=== PATIENT | female | born 1985 | race Caucasian/White ===

== ENCOUNTER 2018-02-19 12:45 | Observation (INO) | payer OTHER | END 2018-02-19 14:41 | disposition home or self-care (01) | LOC: FLD 12:45 | PROVIDERS: ADMIT Obstetrics & Gynecology; ATTEND Obstetrics & Gynecology | DX: Z34.83 Encounter for supervision of other normal pregnancy, third trimester (principal) | CPT/HCPCS: 59025; G0378 ==

== ENCOUNTER 2018-04-07 23:05 | Inpatient (IN) | payer OTHER ==
[2018-04-07] MEDS ORDERED: AMPICILLIN SODIUM 2 GM in NS 100 ML IV ONE (23:34)
[2018-04-07] MEDS ORDERED: MISOPROSTOL 200 MCG TAB PR PRN (23:34)
[2018-04-07] MEDS ORDERED: IBUPROFEN 600 MG TAB PO PRN (23:34)
[2018-04-07] MEDS ORDERED: TERBUTALINE SULFATE 1 MG/ML VIAL IV PRN (23:34)
[2018-04-07] MEDS ORDERED: OLIVE OIL 118 ML BTL MISC PRN (23:34)
[2018-04-07] MEDS ORDERED: LIDOCAINE 1% 300 MG/30 ML SDV SC PRN (23:34)
[2018-04-07] MEDS ORDERED: EPSOM SALT 454 GM TP PRN (23:34)
[2018-04-07] MEDS ORDERED: OXYTOCIN/RINGERS LACTATE 1,000 ML IV PRN (23:34)
[2018-04-07] MEDS ORDERED: LR 1,000 ML IV PRN (23:34)
[2018-04-07] MEDS ORDERED: LIDOCAINE 1% 300 MG/30 ML SDV ONE (23:37)
[2018-04-07] MEDS ORDERED: OLIVE OIL 118 ML BTL ONE (23:37)
[2018-04-07] MEDS ORDERED: MISOPROSTOL 200 MCG TAB ONE (23:38)
[2018-04-07] MEDS ORDERED: AMMONIA AROMATIC 1 EACH AMP IH ONE (23:38)
[2018-04-07] MEDS ORDERED: TERBUTALINE SULFATE 1 MG/ML VIAL ONE (23:38)
[2018-04-07] MEDS ORDERED: OXYTOCIN 10 UNIT/ML VIAL ONE (23:38)
[2018-04-07] MEDS ORDERED: AMPICILLIN SODIUM 1 GM in NS 100 ML IV SCH (23:45)
[2018-04-07 23:53] LABS: PLATELET COUNT 182 10^3/uL (150-400)
[2018-04-08] MEDS ORDERED: ONDANSETRON 4 MG/2 ML VIAL IVP PRN (01:21)
[2018-04-08] MEDS ORDERED: SIMETHICONE 80 MG TAB CHEW PO PRN (02:40)
[2018-04-08] MEDS ORDERED: HYDROCODONE/APAP 5/325 TAB PO PRN (02:40)
[2018-04-08] MEDS ORDERED: HYDROCORTISONE 0.5% CREAM TP PRN (02:40)
--- NOTE | 2018-04-08 02:50 | OBDEL ---
Info Type: Vaginal Presentation at Delivery: Vertex L&D Analgesia/Anesthesia Type: None GBS+: Yes Antibiotic Used for + GBS: Ampicillin (x 1 dose) Intrapartum Medications: Generic Name Dose Route Start Last Admin Trade Name [place] PRN Reason Stop Dose Admin Lactated Ringer's 1,000 mls @ 0 mls/hr 04/07/18 23:34 04/07/18 23:48 Lr IV 04/08/18 23:33 1,000 mls PRN PRN Administration SEE PROTOCOL CONDITIONS Protocol Per Protocol Lidocaine HCl 300 mg 04/07/18 23:34 04/08/18 02:22 Lidocaine Hcl 1% SC 10/04/18 23:33 300 mg ONCE PRN Administration episiotomy Ondansetron HCl 4 mg 04/08/18 01:21 04/08/18 01:26 Zofran IVP 10/05/18 01:20 4 mg Q6HRS PRN Administration Nausea/Vomiting Discontinued Medications Generic Name Dose Route Start Last Admin Trade Name Freq PRN Reason Stop Dose Admin Ampicillin Sodium 2 gm/ Sodium 110 mls @ 220 mls/hr 04/07/18 23:34 04/07/18 23:51 Chloride IV 04/08/18 00:03 110 mls ONCE ONE Administration Protocol Oxytocin/Lactated Ringer's 1,000 mls @ 125 mls/hr 04/07/18 23:34 04/08/18 02: 22 Pitocin 20 Units/Lr (Premix) IV 1,000 mls PRN PRN Administration Post bleeding Ibuprofen 600 mg 04/07/18 23:34 04/08/18 02:45 Motrin PO 600 mg ONCE PRN Administration post , pain - Hospital Course Intrapartum: 04/08/18 02:48 IUP @ 38 6/7 wks in active labor; GBS positive; GDMA1; marginal cord insertion; h/o PTD @ 36 6/7 wks with G1 Indications for Delivery: Spontaneous Labor Vaginal Delivery - Delivery Provider Delivery Physician/CNM: Heather Cisse - Labor and Delivery Onset of Contractions Date: 04/07/18 Onset of Contractions Time: 12:00 Onset of Contractions Type: Spontaneous Rupture of Membranes Date: 04/08/18 Rupture of Membranes Time: 02:06 Rupture of Membranes Type: Artificial Amniotic Fluid Color: Clear Dilation Complete Date: 04/08/18 Dilation Complete Time: 02:00 Placenta Delivery Date: 04/08/18 Placenta Delivery Time: 02:16 Total Hours of Labor: 14 Non-surgical Procedures: Amniotomy Laceration: Other (Specify) (Left midline vaginal lac) Repair: 3-0, Vicryl Vaginal Sponge Count Correct: Yes Vaginal Needle Count Correct: Yes Vaginal Sweep Performed: Yes EBL: 250 cc Delivery Events: None Delivery Comment: A viable infant born at 0212 with 8 and 9 Apgars, delivered over intact perineum. Baby girl to maternal abd; cord clamping delayed x 60 sec. Cord blood obtained. Placenta delivered spontaneously intact with 3 -vc. A left vaginal wall tear noted and repaired with 3-0 Vicryl. No complications. Data RE: 04/16/18 Gestational Age: 38 week(s) and 6 day(s) Gomez Delivery Date: 04/08/18 Delivery Time: 02:12 Sex of : Female Score (1 Min): 8 Score (5 Min): 9 ICD10 Worksheet Patient Problems: Problems Problem Status Onset (spontaneous vaginal delivery) Acute GDM (gestational diabetes mellitus), class A1 Acute GBS (group B Streptococcus carrier), +RV culture, currently Acute
--- NOTE | 2018-04-08 03:43 | GHP ---
[f rep st] HISTORY AND PHYSICAL DATE OF ADMISSION: 04/07/2018 ADMITTING DIAGNOSES: 1. Intrauterine at 38-and-6/7-weeks. 2. Active labor. HPI: Patient is a 32-year-old, 3, para 0-1-1-1, at 38-and-6/7-weeks with an estimated due date 04/16/2018, by an ultrasound done at 6 weeks and 1 day. Patient presents to Labor and Delivery with complaints of contractions that started about noon today and then progressively got worse, more intense around 10 p.m. tonight. Denies any leakage of fluid or vaginal bleeding. Good movement noted. Patient desires nitrous for pain control. Patient has good care at [facility], and presented in her first trimester. Patient's is complicated by history of labor at 36 -and-6-weeks secondary to PPROM. Discussed 17-OHP in this to prevent delivery and patient declined. Patient was GDMA1, diet-controlled, followed by Endo. She is a carrier for alpha thalassemia; FOC tested negative. Anatomy scan was normal, but a marginal cord insertion was noted; followup growth ultrasound in 3rd trimester revealed normal growth. All genetic testing was negative. Patient developed slight anemia of . Patient did receive Tdap in the . GBS culture is positive. PAST OB HISTORY: In 2012, she delivered a viable female infant weighing 6 pounds, at 43-xmg-7-weeks secondary to PPROM. complicated by gestational diabetes, diet-controlled, and some elevated blood pressures x 3 days, no medications taken. In 04/2017, she had a spontaneous AB that did not require a suction D and C. 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 Cycles every 28 days for 5 days ; cycles were irregular since her miscarriage LMP 07/04/2017. Positive test 08/06/2017. 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 Denies any genital lesions. MEDICATIONS: Include vitamins, Dha. ALLERGIES: No known drug allergies. PAST MEDICAL HISTORY: Pneumonia age 2, hospitalized. Patient is a carrier for alpha thalassemia. PAST SURGICAL HISTORY: [place] teeth in 2017. FAMILY HISTORY: Mother with hypothyroidism. Maternal grandfather, stomach cancer. Maternal grandmother , had a stroke. SOCIAL HISTORY: Patient is and lives with her and their daughter, Kary. 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 She denies any alcohol, tobacco, or current illicit drug use. REVIEW OF SYSTEMS: Ten-point review of systems is negative. Pertinent positives noted in HPI. LABS: Patient is A positive, antibody negative. Early 1 hour glucose 83. RPR nonreactive. H and H first trimester 12.2 and 36.6. Platelets 209. RPR nonreactive. Rubella immune. Hepatitis B surface antigen negative. HIV negative. Trio screen positive alpha thalassemia carrier. Father of baby is negative. TSH 0.461. Baseline urine protein 233. Pap test negative 09/05/2017 , as well as gonorrhea and chlamydia. AFP negative. H and H 3rd trimester 11.1 and 34.3. One hour Glucola abnormal at 156. Three hour Glucola 88, 176, 162, 149. GBS culture is positive. PHYSICAL EXAMINATION: VITAL SIGNS: On admission are stable. Patient is afebrile. GENERAL: Well-nourished, well-developed female, alert and oriented x3 in moderate distress secondary to pain with contractions. SKIN: Warm, dry with no rash. CARDIOVASCULAR: Regular rate and rhythm. LUNGS: Clear to auscultation bilaterally. ABDOMEN: Gravid, soft, nontender. PELVIC: 5 cm dilated, 90% effaced, -1 station, intact, cephalic. EXTREMITIES: Normal to inspection without calf tenderness or edema. heart tones: Category 1 strip, heart rate in 140s, positive accelerations, no decelerations, moderate variability. On toco, contractions are every 2 to 3 minutes. ASSESSMENT/PLAN: Patient is a 32-year-old, 2, para 0-1-1-1, at 38-and-6 /7-weeks who presents in active labor. 1. Admit to Labor and Delivery for expectant management. 2. GBS is positive; will treat with Ampicillin for prophylaxis. 3. Patient desires nitrous for pain control. 4. Anticipate normal spontaneous vaginal delivery. /[id number]/MODL MTDD
[2018-04-08] MEDS ORDERED: OXYTOCIN/RINGERS LACTATE 1,000 ML IV ONE (04:30)
--- NOTE | 2018-04-08 06:37 | PDMN ---
Medical Necessity Medical necessity: C/M review: Patient meets INPT criteria [place] [id number] Vaginal delivery: viable female . MD anticipates > 2 MN LOS for ongoing med nec for eval and TX of above.
--- NOTE | 2018-04-08 10:39 | OBPP ---
Progress Note Assessment/Plan: Assessment: 32 y/o s/p at 0212 this am Plan: Doing well Routine PP care Anticipate D/C home tomorrow 04/08/18 10:36 Subjective/ Course: 04/08/18 10:38 Doing well this am. Reports going well, tolerating reg diet, ambulating, voiding without difficulty. Pain well controlled with oral pain meds. Vag bleeding has been light/mod. 04/08/18 10:40 Objective: 04/07/18 23:45 Patient ABO/Rh A POSITIVE 04/07/18 23:45 Temp Pulse Resp BP Pulse Ox 36.7 C 77 16 119/76 04/08/18 10:04 04/08/18 06:45 04/08/18 10:04 04/08/18 10:04 Uterine Position/Fundal Height: At Umbilicus Uterine Tone: Firm Physical Exam - Physical Exam EENT: PERRL/EOMI Respiratory: normal breath sounds Cardiac/Chest: regular rate, rhythm Extremities: normal range of motion Skin: normal color, warm/dry Neuro/Psych: no motor/sensory deficits, alert, normal mood/affect, oriented x 3
[2018-04-08] MEDS: DOCUSATE SODIUM 100 MG CAP PO PRN ×2 (10:57→22:45)
[2018-04-08] MEDS: IBUPROFEN 600 MG TAB PO PRN ×3 (10:57→22:44)
[2018-04-09] MEDS: IBUPROFEN 600 MG TAB PO PRN ×3 (04:41→18:32)
[2018-04-09 08:37] VITALS: BP 116/82
[2018-04-09] MEDS: DOCUSATE SODIUM 100 MG CAP PO PRN ×2 (09:19→18:32)
--- NOTE | 2018-04-09 11:26 | OBPP ---
Progress Note Assessment/Plan: Assessment: s/p PPD # 2 - pt is stable Plan: Plan for d/c home today Instructions reviewed with pt No Rx given Cont PNV and colace Pelvic rest RTC in 4 and 6 weeks for pp check 04/09/18 11:24 Subjective/ Course: 04/08/18 10:38 Doing well this am. Reports going well, tolerating reg diet, ambulating, voiding without difficulty. Pain well controlled with oral pain meds. Vag bleeding has been light/mod. 04/08/18 10:40 04/09/18 11:24 Pt seen and examined. Doing well, no complaints. Mild cramping when she breast feeds, relief with Motrin. Mod lochia. She is OOB, gabriella regular diet, voiding, passing flatus. No BM. Ready to go home today. Objective: 04/07/18 23:45 Patient ABO/Rh A POSITIVE 04/07/18 23:45 Temp Pulse Resp BP Pulse Ox 36.1 C 78 16 116/82 H 95 04/09/18 08:16 04/09/18 08:16 04/09/18 08:16 04/09/18 08:16 04/09/18 08:16 Uterine Position/Fundal Height: Umbilicus -2 Uterine Tone: Firm Physical Exam - Physical Exam General Appearance: alert, no apparent distress, mild distress Respiratory: lungs clear, normal breath sounds Cardiac/Chest: regular rate, rhythm Abdomen: normal bowel sounds, non-tender, soft, flatus (+) Extremities: non-tender, normal inspection Skin: normal color, warm/dry Neuro/Psych: alert, normal mood/affect, oriented x 3
--- NOTE | 2018-04-09 11:28 | OBGCSDC ---
General Delivery Information - General Info : 3 Para: 2 Abortions: 0 Type: Vaginal L&D Analgesia/Anesthesia Type: Nitrous Admission Date: 04/07/18 Labs: Patient ABO/Rh A POSITIVE 04/07/18 23:45 Hct 39.6 % (38.0-47.0) 04/07/18 23:45 - Hospital Course Antepartum: 04/09/18 11:27 IUP @ 38 6/7 wks who presented in active labor at 5 cm; GBS pos; GDMA1; h/o PTD at 35 6/7 wks secondary to PPROM Intrapartum: 04/08/18 02:48 IUP @ 38 6/7 wks in active labor; GBS positive; GDMA1; marginal cord insertion; h/o PTD @ 36 6/7 wks with G1 : 04/08/18 10:38 Doing well this am. Reports going well, tolerating reg diet, ambulating, voiding without difficulty. Pain well controlled with oral pain meds. Vag bleeding has been light/mod. 04/08/18 10:40 04/09/18 11:24 Pt seen and examined. Doing well, no complaints. Mild cramping when she breast feeds, relief with Motrin. Mod lochia. She is OOB, gabriella regular diet, voiding, passing flatus. No BM. Ready to go home today. Vaginal - Delivery Provider Delivery Physician/CNM: Heather Cisse - Diagnosis Labor: Spontaneous Rupture of Membranes Type: Artificial Amniotic Fluid Color: Clear Laceration: Other (Specify) (Left midline vaginal lac) Repair: 3-0, Vicryl Delivery Events: None - Procedures Non-surgical Procedures: Amniotomy - Delivery Non-surgical Procedures: Amniotomy EBL: 250 cc Rolla Data RE: 04/16/18 Gestational Age: 39 week(s) and 0 day(s) Gomez Delivery Date: 04/08/18 Delivery Time: 02:12 Sex of Infant: Female Weight (gm): 2868 g Score (1 Min): 8 Score (5 Min): 9 Discharge Information - Discharge Information Condition: Good Instruction/Follow Up: Four Weeks, Six Weeks
== END 2018-04-09 18:00 | disposition home or self-care (01) | DRG 775 ==
LOC: FLD 23:05 → OBSVTOIN 23:34 → FOB 04-08 04:20
PROVIDERS: ADMIT Obstetrics & Gynecology; ATTEND Obstetrics & Gynecology
DX: O24.420 Gestational diabetes mellitus in childbirth, diet controlled (principal); O99.824 Streptococcus B carrier state complicating childbirth; O71.4 Obstetric high vaginal laceration alone; Z87.59 Personal history of other complications of pregnancy, childbirth and the puerperium; Z14.8 Genetic carrier of other disease; Z3A.38 38 weeks gestation of pregnancy; Z37.0 Single live birth
CPT/HCPCS: J0290; J2405; J2590; J3105